=== PATIENT | male | born 1995 | race Caucasian/White ===

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

== ENCOUNTER 2017-02-25 00:05 | Emergency (ER) | payer BC ==
[~2017-02-25] VITALS: Ht 170.2 cm; Wt 72.6 kg
[~2017-02-25 00:05] MED LIST: FLONASE 50 MCG16 GM; MEDROL 4MG. DOSE4 MG PO; MOTRIN 400MG.400 MG PO; ZITHROMAX Z PA250 MG PO
--- OUTSIDE RECORDS SUMMARY | 2017-02-25 00:21 | External Medical Summary Rpt | CCD ---
Author Author , MILIND VAZ Address Unknown Phone [email or web address] Purpose Continuity of Care Document - through 2016 Problems Code Diagnosis DOS Provider Status S80.01XA CONTUSION OF RIGHT KNEE, INITIAL ENCOUNTER
--- OUTSIDE RECORDS SUMMARY | 2017-02-25 00:21 | External Medical Summary Rpt | CCD ---
Author Author , MILIND VAZ Address Unknown Phone [email or web address] Purpose Continuity of Care Document - through 2016 Problems Code Diagnosis DOS Provider Status S80.01XA CONTUSION OF RIGHT KNEE, INITIAL ENCOUNTER
--- OUTSIDE RECORDS SUMMARY | 2017-02-25 00:22 | External Medical Summary Rpt ---
Author Author MILIND Ritchie, MILIND Ritchie Organization [employer] Address Unknown Phone Unavailable
--- OUTSIDE RECORDS SUMMARY | 2017-02-25 00:22 | External Medical Summary Rpt | CCD ---
Author Author , MILIND Organization [employer] Address Unknown Phone [email or web address] Immunization Name Date Rout CVX Reac Dose Comm Prov Is Faci e tion ent ider Refu lity Give sed n Tdap 07-2 115 999 Hist H149 No H149 , 9-20 oric Adso 10 al rbed Info rmat ion - Sour ce Unsp ecif ied DTaP 09-1 107 999 Hist H149 No H149 , UF 3-20 oric 02 al Info rmat ion - Sour ce Unsp ecif ied Binh 09-1 10 999 Hist H149 No H149 o-IP 3-20 oric V 02 al Info rmat ion - Sour ce Unsp ecif ied MMR 09-1 3 999 Hist H149 No H149 3-20 oric 02 al Info rmat ion - Sour ce Unsp ecif ied DTaP 12-2 107 999 Hist H149 No H149 , UF 8-19 oric 99 al Info rmat ion - Sour ce Unsp ecif ied MMR 12-2 3 999 Hist H149 No H149 8-19 oric 99 al Info rmat ion - Sour ce Unsp ecif ied Hib- 09-1 51 999 Hist H149 No H149 Hep 4-19 oric B 99 al (Com Info vax) rmat ion - Sour ce Unsp ecif ied Binh 09-1 2 999 Hist H149 No H149 o-OP 4-19 oric V 99 al Info rmat ion - Sour ce Unsp ecif ied Vari 09-1 21 999 Hist H149 No H149 cell 4-19 oric a 99 al Info rmat ion - Sour ce Unsp ecif ied DTaP 03-0 107 999 Hist H149 No H149 , UF 2-19 oric 99 al Info rmat ion - Sour ce Unsp ecif ied Binh 12-2 10 999 Hist H149 No H149 o-IP 2-19 oric V 98 al Info rmat ion - Sour ce Unsp ecif ied Hib, 12-2 17 999 Hist H149 No H149 UF 2-19 oric 98 al Info rmat ion - Sour ce Unsp ecif ied DTaP 12-2 107 999 Hist H149 No H149 , UF 2-19 oric 98 al Info rmat ion - Sour ce Unsp ecif ied Hib- 10-2 51 999 Hist H149 No H149 Hep 1-19 oric B 98 al (Com Info vax) rmat ion - Sour ce Unsp ecif ied DTaP 10-2 107 999 Hist H149 No H149 , UF 1-19 oric 98 al Info rmat ion - Sour ce Unsp ecif ied Binh 10-2 10 999 Hist H149 No H149 o-IP 1-19 oric V 98 al Info rmat ion - Sour ce Unsp ecif ied
--- OUTSIDE RECORDS SUMMARY | 2017-02-25 00:22 | External Medical Summary Rpt | CCD ---
Author Author , MILIND VAZ Address Unknown Phone [email or web address] Purpose Continuity of Care Document - through 2016
--- OUTSIDE RECORDS SUMMARY | 2017-02-25 00:22 | External Medical Summary Rpt | CCD ---
Author Author , MILIND Organization [employer] Address Unknown Phone [email or web address] Immunization Name Date Rout CVX Reac Dose [...]
--- OUTSIDE RECORDS SUMMARY | 2017-02-25 00:22 | External Medical Summary Rpt | CCD ---
Author Author , MILIND VAZ Address Unknown Phone [email or web address] Purpose Continuity of Care Document - through 2016
--- NOTE | 2017-02-25 00:43 | Emergency Room Report ---
History of Present Illness Time Seen by MD Ruiz Presenting Problem in Triage Pt arrived:Walked Presenting Problem:PT PRESENTS WITH LAC TO LEFT BAHAI AFTER FALLING AND HITTING HIS FACE ON THE FRONT BUMPER OF HIS FRIEND'S TRUCK Onset of symptoms date/time:/ or onset unknown for:MEDICAL HX UNKNOWN Treatment Prior to Arrival: CORPORATE TREASURER Provided by: Sepsis Risk Assessment: Temp: 98.4 B/P: 170/98 MAP: 122 Pulse: 93 Resp: 18 Recent fever? N Clinical Suspician of Infection? N Mental Status: 1 - Regular (Normal Baseline) Sepsis Risk:Low Sepsis Risk Have you (or family members/close friends) recently traveled outside the [place]? N If Yes, where/when: Have you had exposure to infectious disease within the past month? N TB? Other? Specify: Source patient, RN notes reviewed, old records Exam Limitations no limitations Comment pt with rt sided facial lac this pm jumping on truck Cardiac Chest Pain Chest pain indicative of cardiac No Timing/Duration this evening Severity moderate ALLERGIES Coded Allergies: No Known Allergies (12/08/15) History Medical History General CAD? No Angina: No MO: No Hypertension? No Hyperlipidemia? No CHF? No DVT? No PE? No COPD? No Asthma? No Anemia? No GERD? No Gastric ulcers? No GI Bleed? No Hernia? No Thyroid Problems? No Hypothyroidism? No CVA? No Seizures? No Diabetes? No Renal Insuffiency? No End Stage Renal Disease? No UTI? No Stones? No BPH? No GB Disease: No Nephritic Syndrome? No Asplenia? No Hepatitis? No Sickle Cell Disease? No Arthritis? No Migraines? No Cataracts? No Glaucoma? No MRSA? No HIV? No TB? No Anxiety? No Depression? No Cancer? No More? 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 Respiratory denies cough, denies shortness of breath, denies wheezing Cardiovascular denies chest pain, denies syncope Gastrointestinal denies abdominal pain, denies diarrhea, denies vomiting Genitourinary denies: dysuria, frequency, hesitancy, hematuria. Musculoskeletal denies back pain, denies joint pain, denies joint swelling, denies neck pain Skin see HPI, denies rash, other Psychiatric/Neurological denies headache, denies seizure Physical Exam Vital Signs Vital Signs Date Time Temp Pulse Resp B/P Pulse O2 O2 Flow FiO2 Ox Delivery Rate 02/25 0012 98.4 93 18 170/98 98 - WBC >12,000 or <4,000 or 10% bands? 2 or more SIRS Criteria Met? B/P:170/98 MAP:122 Creatinine >2.0? UA output<0.5ml/kg/hr for 2 hrs? Platelet count >100,000? Lactate >2.0mmol/1? INR >1.2 or PTT > than 60 sec? Evidence of Organ Dysfunction? Provider documented clinical suspician of infection? N Sepsis Criteria Count: 1 Sepsis Risk: Low Sepsis Risk General Appearance no apparent distress Eye Exam - bilateral eye PERRL, bilateral eye EOMI Ear, Nose, Throat normal ENT inspection Neck supple Respiratory Status No: respiratory distress. 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 No Results/Orders Current Medication Orders Sig/Jose M Start time Last Medication Dose Route Stop Time Status Admin Lidocaine HCl 20 ML ONCE ONE 02/25 45 AC 02/25 SC 02/25 46 0039 Lidocaine HCl 0 .STK-MED ONE 02/25 0016 DC .ROUTE Procedures Laceration/Wound Repair Laceration/Wound Repair Risks/benefits discussed with pt/guardian? Yes Tetanus status up to date Wound Location face Wound Length (cm) 1.5 Wound's Depth, Shape superficial Wound Explored no FB identified Risk of retained FB explained to pt/guardian? Yes Irrigated w/ Saline (ccs) 0 Wound Prep Hibiclens, Saline Anesthesia 1% Lidocaine, Local Volume Anesthetic (ccs) 2 Wound Debrided none Wound Repaired With sutures, Dermabond Suture Size/Type 5:0, Ethilon Layer Closure No Total Number Sutures 5 Sterile Dressing Applied Yes Splint Applied No Sling Applied No Departure Departure Time of Disposition 0041 Disposition DC Home or Self Care(routine) Clinical Impression Primary Impression: Facial laceration Qualifiers: Encounter type: initial encounter Qualified Code: S01.81XA - Laceration without foreign body of other part of head, initial encounter Condition STABLE Patient Instructions DI for Laceration Repair Additional Instructions suture out 7-8 days and recheck if any problems Discharge Counseling Counseled pt/family regarding diagnosis, test results, medications/RX, follow up needs ED [place] [address]50
[2017-02-25 00:53] VITALS: BP 170/98
== END 2017-02-25 00:53 | disposition home or self-care (01) ==
LOC: ER 00:05
PROC: 0HQ1XZZ Repair Face Skin, External Approach (ICD-10-PCS; principal; 2017-02-25)
DX: S01.81XA Laceration without foreign body of other part of head, initial encounter (principal); W01.198A Fall on same level from slipping, tripping and stumbling with subsequent striking against other object, initial encounter
CPT/HCPCS: G0168